=== PATIENT | male | born 1955 | race Caucasian/White ===

== ENCOUNTER 2019-09-29 04:19 | Emergency (ER) | payer OTHER ==
[~2019-09-29] VITALS: Ht 182.9 cm; Wt 108.9 kg
--- NOTE | ~2019-09-29 | EKG ---
[place] [address] ELECTROCARDIOGRAM REPORT Name: FLAKOKRISTA Room: [facility]#: [id number] Admission: 09/29/19 Attend Phys: Discharge: 09/29/19 Date of : 51 Date of Service: 09/29/19 0459 Report #: [id number] THIS REPORT FOR: cc: Alex Santoro MD, Bruce D. MD Epiphany, Epiphany MD ~ THIS REPORT FOR: //name// [facility] ED Test Date: 2019-09-29 Test Time: 04:59:38 Pat Name: KRISTA ARRIOLA Department: Room: Gender: M Medical Certification Specialist: : [id number] Requested By: Laurie Patrick Order Number: [id number] MD: Measurements Intervals [place] Rate: 71 P: 23 MN: 165 QRS: -32 QRSD: 110 T: -14 QT: 408 QTc: 444 Interpretive Statements Sinus rhythm Left axis deviation Abnormal R-wave progression, early transition Borderline T abnormalities, inferior leads Compared to ECG 09/13/2013 21:27:08 T-wave abnormality now present [email or web address] By: [id number] Epiphany Epiphany, /YASH
[~2019-09-29 04:19] MED LIST: CLARITIN10 MG PO; IBUPROFEN 800800 MG PO; KEFLEX500 MG PO; NORCO 5-325 TA1 EACH PO; PERCOCET 5-3251 EACH PO; PRILOSEC 20 MG20 MG PO; ZOFRAN4 MG PO
[2019-09-29] MEDS ORDERED: SUDAFED 12 HOU120 MG PO (04:42)
[2019-09-29] MEDS ORDERED: NORVASC 2.5 MG2.5 M1 PO (04:42)
[2019-09-29] MEDS ORDERED: FLONASE 0.05%50 MCG NARES (04:43)
[2019-09-29 05:12] LABS: URINE BILIRUBIN NEGATIVE (Negative); URINE BLOOD 2+ (Negative); URINE CLARITY CLEAR; URINE COLOR YELLOW; URINE GLUCOSE-RANDOM TRACE (Negative); URINE KETONES NEGATIVE (Negative); URINE LEUKOCYTES-REFLEX NEGATIVE (Negative); URINE NITRITE-REFLEX NEGATIVE (Negative); URINE PROTEIN NEGATIVE (Negative); URINE SPECIFIC GRAVITY 1.025 (1.005-1.030); URINE UROBILINOGEN 0.2 E.U./dl (0.2-1.0)
[2019-09-29 05:17] LABS: ABSOLUTE EOSINOPHILS 0.2 thou/uL (0.0-0.7); ABSOLUTE LYMPHOCYTES 1.4 thou/uL (0.8-5.3); ABSOLUTE MONOCYTES 0.5 thou/uL (0.0-1.2); ABSOLUTE NEUTROPHILS 6.3 thou/uL (1.6-8.1); BASOPHILS 0.5 %; EOSINOPHILS 1.9 %; HEMATOCRIT 43.7 % (42.0-52.0); HEMOGLOBIN 15.1 gm/dL (14.0-18.0); LYMPHOCYTES 16.8 %; MCH 30.8 pg (26.0-34.0); MCHC 34.6 g/dL (28.0-37.0); MCV 89.2 fL (80.0-100.0); MONOCYTES 5.4 %; MPV 7.8 fl. (7.2-11.1); NUCLEATED RBCS 0 /100WBC; PLATELET COUNT* 171 thou/uL (150-400); POLYS 75.4 %; RDW-CV 13.7 % (10.5-14.5); WBC 8.4 thou/uL (4.0-11.0)
[2019-09-29 05:20] LABS: CALCIUM 8.2 mg/dL (8.5-10.1); CREATININE 1.2 mg/dL (0.6-1.3); POTASSIUM 3.3 mmol/L (3.5-5.1)
[2019-09-29 05:24] LABS: TOTAL BILIRUBIN 0.3 mg/dL (<0.1-1.0); TOTAL PROTEIN 7.4 g/dL (6.4-8.2)
[2019-09-29 05:26] LABS: BACTERIA-REFLEX 1-9 Few /HPF (None Seen); CASTS None Seen /LPF (None Seen); CRYSTALS None Seen /LPF (None Seen); MUCUS 0-3 Light strn/LPF (None Seen); SQUAMOUS 0-3 Few /LPF (0-3); URINE RBC 3-10 Few /HPF (0-2); URINE WBC-REFLEX 0-5 Rare /HPF (0-5)
[2019-09-29] MEDS ORDERED: HYDROCODON-ACE1 EAC7 PO (06:19)
[2019-09-29] MEDS ORDERED: ZOFRAN ODT4 MG PO (06:19)
[2019-09-29] MEDS ORDERED: TORADOL 10 MG T10 MG PO (06:19)
[2019-09-29 06:37] VITALS: BP 166/98
== END 2019-09-29 06:37 | disposition home or self-care (01) ==
LOC: M.ERS 04:19
PROVIDERS: Personal Emergency Response Attendant
DX: N23 Unspecified renal colic (principal); J45.909 Unspecified asthma, uncomplicated; K21.9 Gastro-esophageal reflux disease without esophagitis; I10 Essential (primary) hypertension; Z88.8 Allergy status to other drugs, medicaments and biological substances

== ENCOUNTER → 2020-07-07 | Outpatient (CLI) | payer OTHER ==
[~2020-07-07] MED LIST changes: +FLONASE 0.05%50 MCG NARES; +HYDROCODON-ACE1 EAC7 PO; +NORVASC 2.5 MG2.5 M1 PO; +SUDAFED 12 HOU120 MG PO; +TORADOL 10 MG T10 MG PO; +ZOFRAN ODT4 MG PO
== END ==
LOC: M.CT 14:32
PROVIDERS: ATTEND Family Medicine
DX: Z13.6 Encounter for screening for cardiovascular disorders (principal)